=== PATIENT | male | born 1945 ===

== ENCOUNTER 2021-07-15 16:22 | Inpatient (IN) | payer MEDICARE ==
[~2021-07-15] VITALS: Ht 177.8 cm; Wt 72.0 kg
[2021-07-15] VITALS (7 sets, daily range): BP systolic 88–110; BP diastolic 47–51
[2021-07-15] MEDS ORDERED: ONDANSETRON HCL 4 MG/2 ML VIAL ONE (16:26)
[2021-07-15] MEDS ORDERED: MORPHINE SULFATE INJECTION 2 MG/ML SYRG ONE (16:26)
[2021-07-15] MEDS ORDERED: SODIUM CHLORIDE 0.9% 1,000 ML IV ONE ×2 (16:45→18:15)
[2021-07-15] MEDS ORDERED: SODIUM CHLORIDE 0.9% 500 ML IV ONE (16:45)
[2021-07-15 17:06] LABS: Basophils # (auto) 0 10 ^3/uL (0-0.2); Basophils % (auto) 0.5 % (0.0-2.0); Eosinophils # (auto) 0.1 10 ^3/uL (0-0.8); Eosinophils % (auto) 0.7 % (0.0-7.0); Hematocrit 50.8 % (41.0-53.0); Hemoglobin 16.7 g/dL (13.5-17.5); Lymphocytes # (auto) 2.9 10 ^3/uL (0.4-5.4); Lymphocytes % (auto) 27.1 % (10.0-50.0); Mean Corpuscular Hemoglobin 29.8 pg (28.0-32.0); Mean Corpuscular Hgb Conc. 32.9 g/dL (32.0-36.0); Mean Corpuscular Volume 90.6 fL (80.0-100.0); Monocytes # (auto) 0.7 10 ^3/uL (0-1.3); Monocytes % (auto) 6.6 % (0.0-12.0); Neutrophils # (auto) 6.9 10 ^3/uL (1.6-8.6); Neutrophils % (auto) 65.1 % (37.0-80.0); Nucleated Red Blood Cells % 0.1 %; Red Cell Distribution Width 13.1 % (11.8-14.3); White Blood Cell 10.6 10^3/uL (4.4-10.8)
[2021-07-15] MEDS ORDERED: fentaNYL CITRATE 100 MCG/2 ML VL ONE (17:12)
[2021-07-15] MEDS ORDERED: MIDAZOLAM HCL 2MG/2ML 2ml VIAL (1mg/ml) ONE (17:12)
[2021-07-15] MEDS ORDERED: MORPHINE SULFATE INJECTION 2 MG/ML SYRG IV ONE (17:15)
[2021-07-15] MEDS ORDERED: ONDANSETRON HCL 4 MG/2 ML VIAL IV ONE (17:15)
[2021-07-15 17:22] LABS: INR 1.08 (0.9-1.15); Partial Thromboplastin Time 27.3 sec (23.6-33.0)
[2021-07-15 17:23] LABS: Albumin 3.2 g/dL (3.4-5.0); Calcium 8.5 mg/dL (8.5-10.1); Magnesium 2.9 mg/dL (1.6-2.6); Potassium 5.3 mmol/L (3.5-5.1)
[2021-07-15 17:30] LABS: BUN/Creatinine Ratio 17.3; Bilirubin, Total 0.7 mg/dL (0.2-1.0); Total Protein 7.4 g/dL (6.4-8.2)
[2021-07-15] MEDS ORDERED: LIDOCAINE 2%HCL (LOCAL ANESTH.) INJ 20ML MDV ONE (17:33)
[2021-07-15] MEDS ORDERED: ATROPINE SULF 1 MG/10ml SYR ONE (17:44)
[2021-07-15] MEDS ORDERED: EPINEPHrine HCL 1 MG/10 ML SYRG ONE (17:48)
[2021-07-15] MEDS ORDERED: InsuLIN REG 1unit/0.01ml Soln (100units/ml) ONE (18:09)
[2021-07-15] MEDS ORDERED: NITROGLYCERIN 0.4 MG SL TAB SL PRN (18:15)
[2021-07-15] MEDS ORDERED: DEXTROSE (50%) 50ML SYRG IV PRN (18:15)
[2021-07-15] MEDS ORDERED: MORPHINE SULFATE INJECTION 2 MG/ML SYRG IV PRN (18:15)
[2021-07-15] MEDS ORDERED: HYDROcodone-ACET 10/325MG TAB PO PRN (18:30)
[2021-07-15] MEDS ORDERED: LOSARTAN POTASSIUM 25 MG TAB PO PRN (18:30)
[2021-07-15] MEDS: ACCU-CHEK COMFORT CURVE STRIP VI SCH (20:00)
[2021-07-15] MEDS: InsuLIN REG 1unit/0.01ml Soln (100units/ml) SC SCH (20:00)
[2021-07-15 20:02] LABS: Urine Bacteria NONE SEEN /hpf (None Seen); Urine Blood 2+ /uL (Negative); Urine Specific Gravity 1.025 (1.001-1.035); Urine WBC 11 /hpf (0 - 3)
[2021-07-15] MEDS: ceFAZolin 1GM/50ML 50 ML IV SCH (22:00)
[2021-07-16] VITALS (24 sets, daily range): BP systolic 95–122; BP diastolic 43–62
[2021-07-16] MEDS: InsuLIN REG 1unit/0.01ml Soln (100units/ml) SC SCH ×5 (04:00→17:35)
[2021-07-16 04:48] LABS: Calcium 8.3 mg/dL (8.5-10.1); Potassium 3.8 mmol/L (3.5-5.1)
[2021-07-16] MEDS: ACCU-CHEK COMFORT CURVE STRIP VI SCH ×5 (04:48→17:34)
[2021-07-16] MEDS: ceFAZolin 1GM/50ML 50 ML IV SCH ×3 (04:49→17:45)
[2021-07-16 04:50] LABS: BUN/Creatinine Ratio 24.2
[2021-07-16] MEDS: ENOXAPARIN SOD 60 MG/0.6 ML SYRINGE SC SCH (10:00)
[2021-07-16] MEDS: ASPirin-EC 81 mg tab PO SCH (10:00)
[2021-07-16] MEDS: DOCUSATE SOD 100 MG CAP PO SCH (10:00)
[2021-07-16] MEDS ORDERED: DEXTROSE (50%) 50ML SYRG IV PRN (11:15)
[2021-07-17] VITALS (21 sets, daily range): BP systolic 102–121; BP diastolic 42–73
[2021-07-17] MEDS: ACCU-CHEK COMFORT CURVE STRIP VI SCH ×4 (00:03→17:12)
[2021-07-17] MEDS: InsuLIN REG 1unit/0.01ml Soln (100units/ml) SC SCH ×4 (00:04→17:13)
[2021-07-17] MEDS: ceFAZolin 1GM/50ML 50 ML IV SCH ×2 (02:02→09:57)
[2021-07-17 05:06] LABS: Basophils # (auto) 0 10 ^3/uL (0-0.2); Basophils % (auto) 0.2 % (0.0-2.0); Eosinophils # (auto) 0 10 ^3/uL (0-0.8); Hematocrit 44.6 % (41.0-53.0); Hemoglobin 15.2 g/dL (13.5-17.5); Lymphocytes # (auto) 1.2 10 ^3/uL (0.4-5.4); Lymphocytes % (auto) 6.2 % (10.0-50.0); Mean Corpuscular Hemoglobin 30.1 pg (28.0-32.0); Mean Corpuscular Hgb Conc. 34.2 g/dL (32.0-36.0); Mean Corpuscular Volume 88.2 fL (80.0-100.0); Monocytes # (auto) 1.1 10 ^3/uL (0-1.3); Monocytes % (auto) 6.1 % (0.0-12.0); Neutrophils # (auto) 16.5 10 ^3/uL (1.6-8.6); Neutrophils % (auto) 87.5 % (37.0-80.0); Nucleated Red Blood Cells % 0.2 %; Red Blood Cells 5.05 10^6/uL (4.5-5.90); Red Cell Distribution Width 13.3 % (11.8-14.3); White Blood Cell 18.9 10^3/uL (4.4-10.8)
[2021-07-17 05:20] LABS: INR 1.21 (0.9-1.15); Partial Thromboplastin Time 31.4 sec (23.6-33.0)
[2021-07-17 05:27] LABS: BUN/Creatinine Ratio 19.6; Calcium 8.3 mg/dL (8.5-10.1); Potassium 3.8 mmol/L (3.5-5.1)
[2021-07-17] MEDS: DOCUSATE SOD 100 MG CAP PO SCH (09:58)
[2021-07-17] MEDS: ASPirin-EC 81 mg tab PO SCH (09:58)
[2021-07-17] MEDS: ENOXAPARIN SOD 60 MG/0.6 ML SYRINGE SC SCH (09:58)
[2021-07-17] MEDS ORDERED: IOHEXOL 350 MG/ML 100ML IJ ONE (13:01)
[2021-07-17] MEDS ORDERED: LIDOCAINE 2%HCL (LOCAL ANESTH.) INJ 20ML MDV ONE (13:01)
[2021-07-17] MEDS ORDERED: MIDAZOLAM HCL 2MG/2ML 2ml VIAL (1mg/ml) ONE ×2 (13:20→14:15)
[2021-07-17] MEDS ORDERED: fentaNYL CITRATE 100 MCG/2 ML VL ONE (13:20)
[2021-07-17] MEDS ORDERED: VANCOMYCIN HCL 1000 MG VL ONE (13:20)
[2021-07-17] MEDS ORDERED: ACETAMINOPHEN 325 MG TAB PO PRN (14:30)
[2021-07-17] MEDS ORDERED: HYDROcodone-ACET 5/325MG TAB PO PRN (14:30)
[2021-07-17] MEDS ORDERED: VANCOMYCIN 1GM/250ML 250 ML IV SCH ×2 (15:00→22:00)
[2021-07-17] MEDS ORDERED: levoFLOXacin 500MG 100 ML IV ONE (17:00)
[2021-07-18] VITALS (7 sets, daily range): BP systolic 112–127; BP diastolic 65–72
[2021-07-18] MEDS: ACCU-CHEK COMFORT CURVE STRIP VI SCH ×3 (00:27→12:02)
[2021-07-18] MEDS: InsuLIN REG 1unit/0.01ml Soln (100units/ml) SC SCH ×3 (00:27→12:03)
[2021-07-18] MEDS: ASPirin-EC 81 mg tab PO SCH (09:47)
[2021-07-18] MEDS: DOCUSATE SOD 100 MG CAP PO SCH (09:47)
[2021-07-18] MEDS: ENOXAPARIN SOD 60 MG/0.6 ML SYRINGE SC SCH (09:49)
[2021-07-18] MEDS ORDERED: VANCOMYCIN PER PHARMACY 0 MG IV SCH (10:00)
[2021-07-18] MEDS ORDERED: levoFLOXacin 500MG 100 ML IV SCH (10:00)
[2021-07-18 14:03] LABS: Basophils # (auto) 0 10 ^3/uL (0-0.2); Basophils % (auto) 0.4 % (0.0-2.0); Eosinophils # (auto) 0.1 10 ^3/uL (0-0.8); Eosinophils % (auto) 0.5 % (0.0-7.0); Hematocrit 44.6 % (41.0-53.0); Hemoglobin 15.4 g/dL (13.5-17.5); Lymphocytes # (auto) 1.8 10 ^3/uL (0.4-5.4); Mean Corpuscular Hemoglobin 30.1 pg (28.0-32.0); Mean Corpuscular Hgb Conc. 34.5 g/dL (32.0-36.0); Mean Corpuscular Volume 87.5 fL (80.0-100.0); Monocytes # (auto) 0.7 10 ^3/uL (0-1.3); Monocytes % (auto) 6.5 % (0.0-12.0); Neutrophils # (auto) 8.7 10 ^3/uL (1.6-8.6); Neutrophils % (auto) 76.6 % (37.0-80.0); Nucleated Red Blood Cells % 0.1 %; Red Cell Distribution Width 13.1 % (11.8-14.3); White Blood Cell 11.3 10^3/uL (4.4-10.8)
[2021-07-18] MEDS ORDERED: LEVE500T32 PO (14:15)
[2021-07-18] MEDS ORDERED: CEPH-322 PO (14:21)
== END 2021-07-18 16:30 | disposition home or self-care (01) | DRG 226 ==
LOC: EDBD 16:22 → ER 16:22 → ICU WEST 18:21 → TELE-CENTR 07-18 02:14
PROVIDERS: ADMIT Internal Medicine Cardiovascular Disease; ATTEND Internal Medicine Cardiovascular Disease
PROC: 5A1223Z Performance of Cardiac Pacing, Continuous (ICD-10-PCS; 2021-07-15)
PROC: 0JH609Z Insertion of Cardiac Resynchronization Defibrillator Pulse Generator into Chest Subcutaneous Tissue and Fascia, Open Approach (ICD-10-PCS; principal; 2021-07-17)
PROC: 02HK3KZ Insertion of Defibrillator Lead into Right Ventricle, Percutaneous Approach (ICD-10-PCS; 2021-07-17)
PROC: 02HL3KZ Insertion of Defibrillator Lead into Left Ventricle, Percutaneous Approach (ICD-10-PCS; 2021-07-17)
PROC: 02H63KZ Insertion of Defibrillator Lead into Right Atrium, Percutaneous Approach (ICD-10-PCS; 2021-07-17)
DX: I25.5 Ischemic cardiomyopathy (principal); I46.9 Cardiac arrest, cause unspecified; I50.23 Acute on chronic systolic (congestive) heart failure; I44.2 Atrioventricular block, complete; I11.0 Hypertensive heart disease with heart failure; D72.829 Elevated white blood cell count, unspecified; I25.10 Atherosclerotic heart disease of native coronary artery without angina pectoris; Z20.822 Contact with and (suspected) exposure to COVID-19; E11.9 Type 2 diabetes mellitus without complications; I25.2 Old myocardial infarction; Z95.1 Presence of aortocoronary bypass graft; Z79.84 Long term (current) use of oral hypoglycemic drugs
CPT/HCPCS: 33210; 33225; 33249; 36415; 71045; 80048; 80053; 81001; 82565; 82962; 83735; 83880; 84443; 84484; 85025; 85379; 85610; 85730; 87081; 87426; 93005; 93306; 96361; 96374; 96375; 99152; 99153; C1751; C1882; G0378; J0690; J1815; J1956; J2250; J2405